=== PATIENT | female | born 1995 | race Caucasian/White ===

== ENCOUNTER 2018-07-21 17:00 | Emergency (ER) | payer SELFPAY ==
--- OUTSIDE RECORDS SUMMARY | 2018-07-21 17:02 | XMS REPORT | Clinical Summary ---
:1995 Author Organization [facility] Address [address] [place] [address] Care Team Providers Name Role Phone Asked, No Pcp Primary Care Provider Unavailable Allergies No Known Allergies Current Medications Prescription Sig. Disp. Refills Start Date End Date Status ibuprofen Take 1 tablet 30 tablet 0 07/03/2017 08/02/2017 (ADVIL,MOTRIN) 600 MG (600 mg total) tablet by mouth every 6 (six) hours as needed for mild pain for up to 30 days. albuterol (PROAIR Inhale 2 puffs 1 Inhaler 0 07/03/2017 08/02/2017 HFA,PROVENTIL every 4 (four) HFA,VENTOLIN HFA) 90 hours as needed mcg/actuation inhaler for wheezing for up to 30 days. Active Problems Not on file Encounters Date Type Specialty Care Team Description 07/14/2018 Emergency Emergency Medicine after 07/20/2017 Social History Tobacco Use Types Packs/Day Years Used Date Current Every Day Smoker 0.5 Alcohol Use Drinks/Week oz/Week Comments No Sex Assigned at Date Recorded Not on file Last Filed Vital Signs Vital Sign Reading Time Taken Blood Pressure 145/89 07/14/2018 1:45 AM CDT Pulse 114 07/14/2018 1:45 AM CDT Temperature 36.3 C (97.4 F) 07/14/2018 1:45 AM CDT Respiratory Rate 23 07/14/2018 1:45 AM CDT Oxygen Saturation 98% 07/14/2018 1:45 AM CDT Inhaled Oxygen Concentration - - Weight 83.5 kg (184 lb) 07/14/2018 1:49 AM CDT Height 162.6 cm (5' 4") 07/14/2018 1:49 AM CDT Body Mass Index 31.58 07/14/2018 1:49 AM CDT Plan of Treatment Health Maintenance Due Date Last Done Comments CERVICAL CANCER SCREENING 2014 INFLUENZA VACCINE 06/11/2018 Procedures Procedure Name Priority Date/Time Associated Diagnosis Comments ECG 12-LEAD STAT 07/14/2018 1:57 AM Results for this CDT procedure are in the results section. after 07/20/2017 Results ECG 12 lead (07/14/2018 1:57 AM) Ventricular rate 95 [facility] Atrial rate 95 [facility] NV interval 152 [facility] QRSD interval 78 [facility] QT interval 342 [facility] QTC interval 429 [facility] P axis 1 49 [facility] QRS axis 1 39 [facility] T wave axis 25 [facility] EKG impression Normal sinus rhythm-Nonspecific T wave [facility] abnormality-Abnormal ECG-No previous ECGs available- Performing Organization Address City/State/Zipcode Phone Number [facility] [place] [address] [place] [address] after 07/20/2017
--- NOTE | 2018-07-21 17:39 | ER ---
Nurse's Notes [facility] Name: Melissa Blevins Age: 23 yrs Sex: Female : 1995 Arrival Date: 07/21/2018 Time: 17:04 Bed 24 Private MD: Diagnosis: Dental caries Presentation: 07/21 17:16 Presenting complaint: Patient states: toothache that began yesterday. Transition of aa5 care: patient was not received from another setting of care. Onset of symptoms was July 20, 2018. Risk Assessment: Do you want to hurt yourself or someone else? Patient reports no desire to harm self or others. Initial Sepsis Screen: Does the patient meet any 2 criteria? No. Patient's initial sepsis screen is negative. Does the patient have a suspected source of infection? No. Patient's initial sepsis screen is negative. Care prior to arrival: None. 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 - Social history:: Smoking status: Patient uses tobacco products, smokes one-half pack cigarettes per day. - Ebola Screening: : No symptoms or risks identified at this time. - Family history:: not pertinent. - Hospitalizations: : No recent hospitalization is reported. Screenin:06 Abuse screen: Denies threats or abuse. Denies injuries from another. Nutritional aj screening: No deficits noted. Tuberculosis screening: No symptoms or risk factors identified. Fall Risk None identified. Assessment: 17:27 General: Appears in no apparent distress. uncomfortable, Behavior is calm, cooperative, aj appropriate for age. Pain: Complains of pain in lower right first molar. Neuro: Level of Consciousness is awake, alert, obeys commands, Oriented to person, place, time, situation, Appropriate for age. Respiratory: Airway is patent Respiratory effort is even, unlabored, Respiratory pattern is regular, symmetrical. EENT: Poor dentition noted. Dental caries noted in lower right first molar (#30) Reports pain in lower right first molar. Derm: Skin is intact, is healthy with good turgor, Skin is pink, warm \T\ dry. normal. 18:06 Reassessment: Patient appears in no apparent distress at this time. No changes from aj previously documented assessment. Patient and/or family updated on plan of care and expected duration. Pain level reassessed. Patient is alert, oriented x 3, equal unlabored respirations, skin warm/dry/pink. Patient states feeling better. Patient states symptoms have improved. Vital Signs: 17:19 BP 144 / 82; Pulse 98; Resp 18 S; Temp 98.0(TE); Pulse Ox 99% on R/A; Weight 86.18 kg aa5 (R); Height 5 ft. 5 in. (165.10 cm) (R); Pain 10/10; 17:19 Body Mass Index 31.62 (86.18 kg, 165.10 cm) aa5 ED Course: 17:04 Patient arrived in ED. rg4 17:16 Triage completed. aa5 17:16 Arm band placed on. aa5 17:21 Bertha Basilio RN is Primary Nurse. aj 17:21 César Shin MD is Attending Physician. rn 18:06 Patient has correct armband on for positive identification. aj 18:06 No provider procedures requiring assistance completed. Patient did not have IV access aj during this emergency room visit. Administered Medications: 17:45 Drug: TORadol 60 mg Route: IM; Site: right gluteus; aj 18:07 Follow up: Response: No adverse reaction; Pain is decreased aj Outcome: 17:38 Discharge ordered by . rn 18:06 Discharged to home ambulatory, with family. aj 18:06 Condition: good 18:06 Discharge instructions given to patient, family, Instructed on discharge instructions, follow up and referral plans. medication usage, Demonstrated understanding of instructions, follow-up care, medications, Prescriptions given X 3. 18:07 Patient left the ED. aj Signatures: Bertha Basilio, RN César Huang MD MD rn Calderon, Audri, RN RN Amy Ames rg4
--- NOTE | 2018-07-21 17:39 | EDPHYS ---
Physician Documentation [facility] Name: Melissa Blevins Age: 23 yrs Sex: Female : 1995 Arrival Date: 07/21/2018 Time: 17:04 Bed 24 Private MD: ED Physician César Shin HPI: 07/21 17:33 This 23 yrs old Female presents to ER via Ambulatory with complaints of MOUTH rn PAIN. 17:33 The patient presents with pain. The problem is located in the lower right first molar. rn 17:33 Onset: The symptoms/episode began/occurred yesterday. Duration: The symptoms are rn continuous. Severity of symptoms: At their worst the symptoms were moderate, in the emergency department the symptoms are unchanged. The patient has experienced similar episodes in the past. Reports several episodes of dental pain in past, has never hurt this bad or lasted this long so hasn't seen a dentist, has been using orajel with only minimal relief, no fever, no swelling, no drainage.. 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 - Social history:: Smoking status: Patient uses tobacco products, smokes one-half pack cigarettes per day. - Ebola Screening: : No symptoms or risks identified at this time. - Family history:: not pertinent. - Hospitalizations: : No recent hospitalization is reported. ROS: 17:33 Constitutional: Negative for fever, chills, and weight loss, Eyes: Negative for injury, rn pain, redness, and discharge, ENT: + dental pain and aches Exam: 17:33 Constitutional: This is a well developed, well nourished patient who is awake, alert, rn appears uncomfortable Head/Face: Normocephalic, atraumatic. ENT: Poor dentition, + deep cavity of tooth #30 without evidence of abscess/drainage/swelling Vital Signs: 17:19 BP 144 / 82; Pulse 98; Resp 18 S; Temp 98.0(TE); Pulse Ox 99% on R/A; Weight 86.18 kg aa5 (R); Height 5 ft. 5 in. (165.10 cm) (R); Pain 10; 17:19 Body Mass Index 31.62 (86.18 kg, 165.10 cm) aa5 MDM: 17:21 Patient medically screened. rn 17:33 Differential diagnosis: dental caries. Data reviewed: vital signs, nurses notes. rn 17:37 Counseling: I had a detailed discussion with the patient and/or guardian regarding: the rn historical points, exam findings, and any diagnostic results supporting the discharge/admit diagnosis, the need for outpatient follow up, to return to the emergency department if symptoms worsen or persist or if there are any questions or concerns that arise at home. Special discussion: I discussed with the patient/guardian in detail that at this point there is no indication for admission to the hospital. It is understood, however, that if the symptoms persist or worsen the patient needs to return immediately for re-evaluation. Based on the history and exam findings, there is no indication for further emergent testing or inpatient evaluation. I discussed with the patient/guardian the need to see a dentist for further evaluation of the symptoms. Administered Medications: 17:45 Drug: TORadol 60 mg Route: IM; Site: right gluteus; aj 18:07 Follow up: Response: No adverse reaction; Pain is decreased aj Disposition: 07/21/18 17:38 Discharged to Home. Impression: Dental caries. - Condition is Stable. - Discharge Instructions: Dental Caries, Adult. - Prescriptions for Clindamycin HCl 300 mg Oral Capsule - take 1 capsule by ORAL route every 6 hours for 10 days; 40 capsule. Ibuprofen 800 mg Oral Tablet - take 1 tablet by ORAL route every 12 hours As needed take with food; 20 tablet. Ultram 50 mg Oral Tablet - take 1 tablet by ORAL route every 6 hours As needed; 10 tablet. - Medication Reconciliation Form, Thank You Letter, Antibiotic Education, Prescription Opioid Use form. - Follow up: Private Physician; When: As needed; Reason: Recheck today's complaints, Re-evaluation by your physician. - Problem is chronic. - Symptoms have improved. Signatures: Bertha Basilio RN César Huang MD MD rn Calderon, Audri, RN RN aa5 Corrections: (The following items were deleted from the chart) 18:07 17:38 07/21/2018 17:38 Discharged to Home. Impression: Dental caries. Condition is aj Stable. Forms are Medication Reconciliation Form, Thank You Letter, Antibiotic Education, Prescription Opioid Use. Follow up: Private Physician; When: As needed; Reason: Recheck today's complaints, Re-evaluation by your physician. Problem is chronic. Symptoms have improved. rn
[2018-07-21] MEDS ORDERED: KETOROLAC 30 MG/ML INJ ONE (17:51)
== END 2018-07-21 18:07 | disposition home or self-care (01) ==
LOC: ER 17:00
DX: K02.9 Dental caries, unspecified (principal); F17.210 Nicotine dependence, cigarettes, uncomplicated
CPT/HCPCS: 96372; 99283

== ENCOUNTER 2018-08-18 18:31 | Emergency (ER) | payer SELFPAY ==
--- OUTSIDE RECORDS SUMMARY | 2018-08-18 18:33 | XMS REPORT | Clinical Summary ---
:1995 Author Organization [facility] Address [address] [place] [address] Care Team Providers Name Role Phone Asked, No Pcp Primary Care Provider Unavailable Allergies No Known Allergies Current Medications Not on file Active Problems Not on file Encounters Date Type Specialty Care Team Description 07/14/2018 Emergency Emergency Medicine after 08/17/2017 Social History Tobacco Use Types Packs/Day Years [...] procedure are in the results section. after 08/17/2017 Results ECG 12 lead (07/14/2018 1:57 AM) Ventricular rate 95 [facility] Atrial rate 95 [facility] ID interval 152 [facility] QRSD interval 78 [facility] QT interval 342 [facility] QTC interval 429 [facility] P axis 1 49 [facility] QRS axis 1 39 [facility] T wave axis 25 [facility] EKG impression Normal sinus rhythm-Nonspecific T wave [facility] M[facility] abnormality-Abnormal ECG-No previous ECGs available- Performing Organization Address City/State/Zipcode Phone Number [facility] MUSE [address] [place] [address] after 08/17/2017
--- NOTE | 2018-08-18 19:49 | ER ---
Nurse's Notes [facility] Name: Melissa Blevins Age: 23 yrs Sex: Female : 1995 Arrival Date: 08/18/2018 Time: 18:34 Bed 14 Private MD: Diagnosis: Unspecified diseases of pulp and periapical tissues;Bronchitis, not specified as acute or chronic Presentation: 08/18 18:50 Presenting complaint: Patient states: "my left bottom gum is swollen and it's been like aa5 that since yesterday". Transition of care: patient was not received from another setting of care. Onset of symptoms was August 2018. Risk Assessment: Do you want to hurt yourself or someone else? Patient reports no desire to harm self or others. Initial Sepsis Screen: Does the patient meet any 2 criteria? No. Patient's initial sepsis screen is negative. Does the patient have a suspected source of infection? No. Patient's initial sepsis screen is negative. Care prior to arrival: None. 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 - Social history:: Smoking status: Patient uses tobacco products, smokes one-half pack cigarettes per day. - Ebola Screening: : No symptoms or risks identified at this time. Screenin:13 Abuse screen: Denies threats or abuse. Denies injuries from another. Nutritional ao screening: No deficits noted. Tuberculosis screening: No symptoms or risk factors identified. Fall Risk None identified. Assessment: 19:07 General: Appears in no apparent distress. comfortable, Behavior is calm, cooperative, ao appropriate for age. Pain: Complains of pain in mouth. Neuro: Level of Consciousness is awake, alert, obeys commands, Oriented to person, place, time, situation, Appropriate for age Moves all extremities. Full function Speech is normal. Cardiovascular: Capillary refill < 3 seconds Patient's skin is warm and dry. Respiratory: Airway is patent Respiratory effort is even, unlabored, Respiratory pattern is regular, symmetrical. GI: Abdomen is non-distended. : No signs and/or symptoms were reported regarding the genitourinary system. EENT: Poor dentition noted. Derm: Skin is intact, Skin is normal, Skin temperature is warm. Musculoskeletal: Circulation, motion, and sensation intact. Range of motion: intact in all extremities. 20:17 Reassessment: DC instructions given to patient. Patient agree with the POC and to ao follow up with PCP. No questions at this time. Vital Signs: 18:49 BP 151 / 96; Pulse 86; Resp 16 S; Temp 98.7(TE); Pulse Ox 99% on R/A; Weight 86.18 kg aa5 (R); Height 5 ft. 5 in. (165.10 cm) (R); Pain 10/10; 18:49 Body Mass Index 31.62 (86.18 kg, 165.10 cm) aa5 ED Course: 18:34 Patient arrived in ED. mr 18:49 Arm band placed on. aa5 18:51 Triage completed. aa5 18:55 Bairon Appiah MD is Attending Physician. snw 18:55 Denise Cuellar FNP-C is PHCP. snw 19:07 Darrell Hewitt, ROSA is Primary Nurse. ao 19:14 Patient has correct armband on for positive identification. Pulse ox on. NIBP on. ao 20:16 No provider procedures requiring assistance completed. Patient did not have IV access ao during this emergency room visit. Administered Medications: 20:00 Drug: [place] 5 mg-325 mg 1 tabs Route: PO; ao 20:16 Follow up: Response: No adverse reaction ao 20:00 Drug: predniSONE 40 mg Route: PO; ao 20:15 Follow up: Response: No adverse reaction ao 20:15 Drug: Rocephin (cefTRIAXone) 1 grams Route: IM; Site: right gluteus; ao 20:22 Follow up: Response: No adverse reaction ao 20:15 Drug: Albuterol 2.5 mg Route: Inhalation; ao 20:15 Follow up: Response: No adverse reaction ao Outcome: 19:49 Discharge ordered by . snw 20:16 Discharged to home ambulatory. ao 20:16 Condition: stable 20:16 Discharge instructions given to patient, Instructed on discharge instructions, follow up and referral plans. Demonstrated understanding of instructions, follow-up care, medications, Prescriptions given X 3. 20:22 Patient left the ED. ao Signatures: Denise Cuellar, RAMANDEEP-C STEEL PLACER-Csnw Chaparrita Garcia mr GandaraJennifer, RN RN aa5 Darrell Hewitt RN RN ao
--- NOTE | 2018-08-18 19:49 | EDPHYS ---
Physician Documentation [facility] Name: Melissa Blevins Age: 23 yrs Sex: Female : 1995 Arrival Date: 08/18/2018 Time: 18:34 Bed 14 Private MD: ED Physician Bairon Appiah HPI: 08/18 19:35 This 23 yrs old Female presents to ER via Ambulatory with complaints of snw abscess tooth. 19:35 The patient presents with pain, swelling. The problem is located in the right jaw. snw Onset: The symptoms/episode began/occurred suddenly, 1 day(s) ago, and became persistent. Duration: The symptoms are continuous. Modifying factors: The symptoms are alleviated by nothing. Associated signs and symptoms: Pertinent positives: dental pain to area x 2-3 days. Severity of symptoms: At their worst the symptoms were moderate. The patient has not experienced similar symptoms in the past. It is unknown whether or not the patient has recently seen a physician. encouraged to see dentist kalpesh. 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 - Social history:: Smoking status: Patient uses tobacco products, smokes one-half pack cigarettes per day. - Ebola Screening: : No symptoms or risks identified at this time. ROS: 19:33 Constitutional: Negative for fever, chills, and weight loss, Eyes: Negative for injury, snw pain, redness, and discharge, ENT: Negative for injury and discharge, + edema, tenderness to right lower mandible adjacent to right lower bicuspids Neck: Negative for injury, pain, and swelling, Cardiovascular: Negative for chest pain, palpitations, and edema, Abdomen/GI: Negative for abdominal pain, nausea, vomiting, diarrhea, and constipation, Back: Negative for injury and pain, : Negative for injury, bleeding, discharge, and swelling, MS/Extremity: Negative for injury and deformity, Skin: Negative for injury, rash, and discoloration, Neuro: Negative for headache, weakness, numbness, tingling, and seizure. 19:33 Respiratory: Positive for cough. Exam: 19:31 Constitutional: This is a well developed, well nourished patient who is awake, alert, snw and in no acute distress. Eyes: Pupils equal round and reactive to light, extra-ocular motions intact. Lids and lashes normal. Conjunctiva and sclera are non-icteric and not injected. Cornea within normal limits. Periorbital areas with no swelling, redness, or edema. Neck: Trachea midline, no thyromegaly or masses palpated, and no cervical lymphadenopathy. Supple, full range of motion without nuchal rigidity, or vertebral point tenderness. No Meningismus. Chest/axilla: Normal chest wall appearance and motion. Nontender with no deformity. No lesions are appreciated. Cardiovascular: Regular rate and rhythm with a normal S1 and S2. No gallops, murmurs, or rubs. Normal PMI, no JVD. No pulse deficits. Respiratory: Lungs have equal breath sounds bilaterally, wheezes to auscultation. No rales or rhonchi noted. No increased work of breathing, no retractions or nasal flaring. Abdomen/GI: Soft, non-tender, with normal bowel sounds. No distension or tympany. No guarding or rebound. No evidence of tenderness throughout. Back: No spinal tenderness. No costovertebral tenderness. Full range of motion. Skin: Warm, dry with normal turgor. Normal color with no rashes, no lesions, and no evidence of cellulitis. MS/ Extremity: Pulses equal, no cyanosis. Neurovascular intact. Full, normal range of motion. Neuro: Awake and alert, GCS 15, oriented to person, place, time, and situation. Cranial nerves II-XII grossly intact. Motor strength 5/5 in all extremities. Sensory grossly intact. Cerebellar exam normal. Normal gait. 19:31 Head/face: Noted is swelling, that is moderate, of the right jaw. 19:31 ENT: External ear(s): are unremarkable, TM's: are normal, Nose: is normal, Mouth: is normal, Dental exam: gum swelling, specifically in the lower right cuspid (#27), lower right first bicuspid (#28) and lower right second bicuspid (#29), pain. Vital Signs: 18:49 BP 151 / 96; Pulse 86; Resp 16 S; Temp 98.7(TE); Pulse Ox 99% on R/A; Weight 86.18 kg aa5 (R); Height 5 ft. 5 in. (165.10 cm) (R); Pain 10; 18:49 Body Mass Index 31.62 (86.18 kg, 165.10 cm) aa5 MDM: 18:55 Patient medically screened. snw 19:49 Data reviewed: vital signs, nurses notes. Data interpreted: Pulse oximetry: on room air snw is 99 %. Interpretation: normal. Counseling: I had a detailed discussion with the patient and/or guardian regarding: the historical points, exam findings, and any diagnostic results supporting the discharge/admit diagnosis, the presence of at least one elevated blood pressure reading (>120/80) during this emergency department visit, the need for outpatient follow up, to return to the emergency department if symptoms worsen or persist or if there are any questions or concerns that arise at home. Special discussion: I have referred the patient to see his PCP for further evaluation of high blood pressure. Based on the history and exam findings, there is no indication for further emergent testing or inpatient evaluation. I discussed with the patient/guardian the need to see a dentist for further evaluation of the symptoms. I discussed with the patient/guardian the need to see the primary care provider for further evaluation of the symptoms. Administered Medications: 20:00 Drug: [place] 5 mg-325 mg 1 tabs Route: PO; ao 20:16 Follow up: Response: No adverse reaction ao 20:00 Drug: predniSONE 40 mg Route: PO; ao 20:15 Follow up: Response: No adverse reaction ao 20:15 Drug: Rocephin (cefTRIAXone) 1 grams Route: IM; Site: right gluteus; ao 20:22 Follow up: Response: No adverse reaction ao 20:15 Drug: Albuterol 2.5 mg Route: Inhalation; ao 20:15 Follow up: Response: No adverse reaction ao Disposition: 08/19 07:43 Co-signature as Attending Physician, Bairon Appiah MD I agree with the assessment and hina plan of care. Disposition: 08/18/18 19:49 Discharged to Home. Impression: Unspecified diseases of pulp and periapical tissues, Bronchitis, not specified as acute or chronic. - Condition is Stable. - Discharge Instructions: Acute Bronchitis, Adult, Dental Abscess, Dental Pain, Hypertension, How to Use an Inhaler, Upper Respiratory Infection, Adult, Cool Mist Vaporizer, Diet and Dental Disease, Cough, Adult. - Prescriptions for chlorhexidine gluconate 0.12 % Mucous Membrane mouthwash - place 15 milliliter by MUCOUS MEMBRANE route 2 times per day after brushing teeth, swish in mouth for 30 seconds then spit out; 480 milliliter. penicillin V potassium 500 mg Oral tablet - take 1 tablet by ORAL route every 8 hours for 10 days; 30 tablet. Motrin IB 200 mg Oral Tablet - take 2 tablet by ORAL route every 8 hours As needed as needed with food; 40 tablet. Albuterol Sulfate 90 mcg/actuation - inhale 1-2 puff by INHALATION route every 4-6 hours; 1 Inhaler. - Work release form, Medication Reconciliation Form, Thank You Letter, Antibiotic Education, Prescription Opioid Use form. - Follow up: Private Physician; When: 2 - 3 days; Reason: Recheck today's complaints, Continuance of care, Re-evaluation by your physician. Follow up: Emergency Department; When: As needed; Reason: Worsening of condition. - Problem is new. - Symptoms are unchanged. Signatures: Bairon Appiah MD MD cha Therrien, Shelly, PHARMACOLOGIST-C PHARMACOLOGIST-Csnw Jennifer Gandara RN RN aa5 Darrell Hewitt RN RN ao Corrections: (The following items were deleted from the chart) 08/18 20:22 19:49 08/18/2018 19:49 Discharged to Home. Impression: Unspecified diseases of pulp and ao periapical tissues; Bronchitis, not specified as acute or chronic. Condition is Stable. Discharge Instructions: Acute Bronchitis, Adult, Dental Abscess, Dental Pain, Hypertension, How to Use an Inhaler, Upper Respiratory Infection, Adult, Cool Mist Vaporizer, Diet and Dental Disease, Cough, Adult. Prescriptions for chlorhexidine gluconate 0.12 % Mucous Membrane mouthwash - place 15 milliliter by MUCOUS MEMBRANE route 2 times per day after brushing teeth, swish in mouth for 30 seconds then spit out; 480 milliliter, penicillin V potassium 500 mg Oral tablet - take 1 tablet by ORAL route every 8 hours for 10 days; 30 tablet, Motrin IB 200 mg Oral Tablet - take 2 tablet by ORAL route every 8 hours As needed as needed with food; 40 tablet, Albuterol Sulfate 90 mcg/actuation - inhale 1-2 puff by INHALATION route every 4-6 hours; 1 Inhaler. and Forms are Work release form, Medication Reconciliation Form, Thank You Letter, Antibiotic Education, Prescription Opioid Use. Follow up: Private Physician; When: 2 - 3 days; Reason: Recheck today's complaints, Continuance of care, Re-evaluation by your physician. Follow up: Emergency Department; When: As needed; Reason: Worsening of condition. Problem is new. Symptoms are unchanged. snw
[2018-08-18] MEDS ORDERED: HYDROCODONE/APAP 5/325 MG TAB ONE (19:50)
[2018-08-18] MEDS ORDERED: ALBUTEROL 2.5 MG/3 ML NEB SOL ONE (19:50)
[2018-08-18] MEDS ORDERED: CEFTRIAXONE 1000 MG/VIAL ONE (19:50)
[2018-08-18] MEDS ORDERED: predniSONE 20 MG TAB ONE (19:50)
== END 2018-08-18 20:22 | disposition home or self-care (01) ==
LOC: ER 18:31
DX: K04.90 Unspecified diseases of pulp and periapical tissues (principal); J40 Bronchitis, not specified as acute or chronic; F17.210 Nicotine dependence, cigarettes, uncomplicated; I34.1 Nonrheumatic mitral (valve) prolapse
CPT/HCPCS: 96372; 99284; J7512

== ENCOUNTER 2018-10-09 09:03 | Emergency (ER) | payer SELFPAY ==
--- OUTSIDE RECORDS SUMMARY | 2018-10-09 09:06 | XMS REPORT | Clinical Summary ---
:1995 Author Organization [facility] Address [address] [place] [address] Care Team Providers Name Role Phone Asked, No Pcp Primary Care Provider Unavailable Allergies No Known Allergies Medications Not on file Active Problems Not on file Encounters Date Type Specialty Care Team Description 07/14/2018 Emergency Emergency Medicine after 10/08/2017 Social History Tobacco Use Types Packs/Day Years Used Date Current Every Day Smoker 0.5 Alcohol Use Drinks/Week oz/Week Comments No Sex Assigned at Date Recorded Not on file Job Start Date Occupation Industry Not on file Not on file Not on file Travel History Travel Start Travel End No recent travel history available. Last Filed Vital Signs Vital Sign Reading [...] Health Maintenance Due Date Last Done Comments MMR VACCINES (1 of 1 - Standard 1994 series) VARICELLA VACCINES (1 of 2 - 2-dose 2006 adolescent series) CERVICAL CANCER SCREENING 2014 INFLUENZA VACCINE 06/11/2018 HEPATITIS B VACCINES Aged Out No longer eligible based on patient's age to complete this topic IPV VACCINES Aged Out No longer eligible based on patient's age to complete this topic MENINGOCOCCAL VACCINE Aged Out No longer eligible based on patient's age to complete this topic Procedures Procedure Name Priority Date/Time Associated Diagnosis Comments ECG 12-LEAD STAT 07/14/2018 1:57 AM Results for this CDT procedure are in the results section. after 10/08/2017 Results ECG 12 lead (07/14/2018 1:57 AM CDT) Ventricular rate 95 [facility] Atrial rate 95 [facility] FL interval 152 [facility] QRSD interval 78 [facility] QT interval 342 [facility] QTC interval 429 [facility] P axis 1 49 [facility] QRS axis 1 39 [facility] T wave axis 25 [facility] EKG impression Normal sinus rhythm-Nonspecific T wave [facility] MUSE abnormality-Abnormal ECG-No previous ECGs available- Performing Organization Address City/State/Zipcode Phone Number [facility] [address] [place] [address] after 10/08/2017 Advance Directives Patient has advance care planning documents on file. For more information, please contact:Yuriy Paniagua[address] [place] [address]
[2018-10-09 09:37] LABS: Urine Blood 3+ (NEG); Urine Glucose NEGATIVE (NEG); Urine Protein 1+ (NEG)
[2018-10-09] MEDS ORDERED: ONDANSETRON 4 MG/2 ML VIAL ONE (10:00)
[2018-10-09 10:02] LABS: Absolute Lymphocytes (CBC) 1.6 K/uL (0.7-4.9); Absolute Monocytes 0.4 K/uL (0.1-1.3); Absolute Neutrophil 5.2 K/uL (1.8-8.0); Basophils % 0.8 % (0-1.3); Eosinophils % 3.4 % (0-4.4); Hematocrit 37.4 % (36.0-45.0); MCH 30.2 pg (27.0-35.0); MCV 87.4 fL (80-100); MPV 6.8 fL (7.6-11.3); Monocytes % 5.8 % (3.3-12.3); RBC Red Blood Cell Count 4.28 M/uL (3.86-4.86)
[2018-10-09 10:14] LABS: BUN Blood Urea Nitrogen 10 mg/dL (7-18); Bicarbonate 27 mmol/L (21-32); Glucose Level 82 mg/dL (74-106); Potassium 3.7 mmol/L (3.5-5.1); Sodium Level 140 mmol/L (136-145)
[2018-10-09] MEDS ORDERED: MAGNE/ALUM HYDROXD 30 ML UCUP ONE (10:40)
[2018-10-09] MEDS ORDERED: LIDOCAINE VISCOUS 2% SOLN 15 ML UDC ONE (10:40)
[2018-10-09 10:57] LABS: ALT/SGPT 25 U/L (12-78); AST/SGOT 16 U/L (15-37); Albumin 3.9 g/dL (3.4-5.0); Alkaline Phosphatase 70 U/L (45-117); Bilirubin Direct < 0.1 mg/dL (0-0.2); Bilirubin Total 0.1 mg/dL (0.2-1.0); Lipase 136 U/L (73-393); Protein, Total 7.7 g/dL (6.4-8.2)
--- NOTE | 2018-10-09 11:40 | RAD REPORT ---
EXAM DESCRIPTION: US - Abdomen Exam Limited - 10/09/2018 11:04 am CLINICAL HISTORY: Abdominal pain. COMPARISON: None. FINDINGS: 16 millimeter gallstone. The gallbladder wall is not thickened. The biliary tree is normal caliber. IMPRESSION: Cholelithiasis without cholecystitis.
--- NOTE | 2018-10-09 12:00 | RAD REPORT ---
EXAM DESCRIPTION: US - Transvaginal Study Probe - 10/09/2018 11:18 am CLINICAL HISTORY: Lower abdominal pain, pelvic pain COMPARISON: None. TECHNIQUE: Endovaginal sonography was performed. FINDINGS: Uterus is 6.0 x 3.9 x 4.1 cm. No myometrial mass identifiable. A thin endometrial stripe i s present with no endometrial mass or polyp. Endometrial thickness is 3 mm. Physiologic quantity of free fluid is seen in the cul-de-sac. Both ovaries are identifiable and chrissy l in size. No suspicious ovarian or adnexal finding. IMPRESSION: Endovaginal ultrasound study shows no significant or suspicious finding.
--- NOTE | 2018-10-09 12:35 | ER ---
Nurse's Notes [facility] Name: Melissa Blevins Age: 23 yrs Sex: Female : 1995 Arrival Date: 10/09/2018 Time: 09:06 Bed 16 Private MD: Diagnosis: Cholelithiasis;Nausea and vomiting Presentation: 10/09 09:14 Presenting complaint: Patient states: i started having n/v this morning with abdominal tw2 pain, i am currently on my period. Transition of care: patient was not received from another setting of care. Onset of symptoms was October 09, 2018. Risk Assessment: Do you want to hurt yourself or someone else? Patient reports no desire to harm self or others. Initial Sepsis Screen: Does the patient meet any 2 criteria? No. Patient's initial sepsis screen is negative. Does the patient have a suspected source of infection? No. Patient's initial sepsis screen is negative. Care prior to arrival: None. 09:14 Method Of Arrival: Ambulatory tw2 09:14 Acuity: CRISTHIAN 3 tw2 Triage Assessment: 09:19 General: Appears in no apparent distress. Behavior is calm, cooperative. Pain: tw2 Complains of pain in abdomen. GI: Reports lower abdominal pain, upper abdominal pain, nausea, vomiting. 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 - Social history:: Smoking status: Patient uses tobacco products, smokes one pack cigarettes per day. Patient uses alcohol, occasionally. - Ebola Screening: : Patient denies travel to an Ebola-affected area in the 21 days before illness onset. Screenin:20 Abuse screen: Denies threats or abuse. Nutritional screening: No deficits noted. tw2 Tuberculosis screening: No symptoms or risk factors identified. Fall Risk None identified. Assessment: 09:26 General: Appears in no apparent distress. obese, well groomed, Behavior is calm, tw2 cooperative, appropriate for age. Pain: Complains of pain in abdomen. Neuro: Level of Consciousness is awake, alert, obeys commands, Oriented to person, place, time, situation. Cardiovascular: Heart tones S1 S2 Patient's skin is warm and dry. Respiratory: Airway is patent Respiratory effort is even, unlabored, Respiratory pattern is regular, symmetrical, Breath sounds are clear bilaterally. GI: Abdomen is round non-distended, Bowel sounds present X 4 quads. Reports lower abdominal pain, upper abdominal pain, nausea, vomiting. : No signs and/or symptoms were reported regarding the genitourinary system. EENT: No signs and/or symptoms were reported regarding the EENT system. Derm: No signs and/or symptoms reported regarding the dermatologic system. Musculoskeletal: Circulation, motion, and sensation intact. Range of motion: intact in all extremities. 10:23 Reassessment: Patient appears in no apparent distress at this time. Patient and/or tw2 family updated on plan of care and expected duration. Pain level reassessed. Patient is alert, oriented x 3, equal unlabored respirations, skin warm/dry/pink. 11:31 Reassessment: Patient appears in no apparent distress at this time. Patient and/or tw2 family updated on plan of care and expected duration. Pain level reassessed. Patient is alert, oriented x 3, equal unlabored respirations, skin warm/dry/pink. 12:23 Reassessment: Patient appears in no apparent distress at this time. Patient and/or tw2 family updated on plan of care and expected duration. Pain level reassessed. Patient is alert, oriented x 3, equal unlabored respirations, skin warm/dry/pink. pt tolerated po challenge at this time, nad. 12:44 Reassessment: Patient appears in no apparent distress at this time. Patient and/or tw2 family updated on plan of care and expected duration. Pain level reassessed. Patient is alert/active/playful, equal unlabored respirations, skin warm/dry/pink. Patient states feeling better. Patient states symptoms have improved. Vital Signs: 09:15 BP 134 / 94; Pulse 94; Resp 17; Temp 98.5(O); Pulse Ox 100% on R/A; Pain 6/10; tw2 10:23 BP 105 / 80; Pulse 75; Resp 17; Pulse Ox 100% on R/A; Pain 6/10; tw2 11:31 BP 115 / 88; Pulse 77; Resp 17; Pulse Ox 99% on R/A; tw2 12:24 BP 123 / 65; Pulse 82; Resp 17; Pulse Ox 100% ; Pain 4/10; tw2 ED Course: 09:06 Patient arrived in ED. rg4 09:13 Anay Fuchs RN is Primary Nurse. tw2 09:15 Triage completed. tw2 09:16 Arm band placed on. tw2 09:16 Bed in low position. Call light in reach. Adult w/ patient. Pulse ox on. NIBP on. tw2 09:[address] PA is PHCP. cp 09:38 Drew Kwon MD is Attending Physician. cp 09:40 Missed attempt(s): 22 gauge in left antecubital area. Bleeding controlled, band aid tw2 applied, catheter tip intact. Inserted saline lock: 22 gauge in right antecubital area, using aseptic technique. Blood collected. 11:04 US Abdomen Limited: RUQ/epigastric In Process Unspecified. EDMS 11:20 Transvaginal Study Probe In Process Unspecified. EDMS 11:21 Patient moved back from ultrasound. hr 12:33 Reza Waters MD is Referral Physician. cp 12:44 No provider procedures requiring assistance completed. IV discontinued, intact, tw2 bleeding controlled, No redness/swelling at site. Pressure dressing applied. Administered Medications: 09:55 Drug: Zofran 4 mg Route: IVP; Site: right antecubital; tw2 10:34 Follow up: Response: No adverse reaction; Nausea is decreased tw2 10:34 Drug: GI Cocktail without - (Maalox Suspension 30 ml, Lidocaine Liquid 2 % 15 tw2 ml) Route: PO; 12:22 Follow up: Response: No adverse reaction; Pain is decreased tw2 Outcome: 12:34 Discharge ordered by . cp 12:44 Discharged to home ambulatory, with friend. tw2 12:44 Condition: stable 12:44 Discharge instructions given to patient, friend, Instructed on discharge instructions, follow up and referral plans. no drinking with medication, no driving heavy equipment, medication usage, Demonstrated understanding of instructions, follow-up care, medications, Prescriptions given X 3. 12:45 Patient left the ED. tw2 Signatures: Dispatcher [employer] EDMS Pauline Webster hr Bairon Street PA PA cp Anay Fuchs RN RN tw2 Amy Browning rg4 Corrections: (The following items were deleted from the chart) 10:35 10:23 BP 115 / 98; Pulse 75bpm; Resp 17bpm; Pulse Ox 100% RA; Pain 04/20; tw2 tw2
--- NOTE | 2018-10-09 12:35 | EDPHYS ---
Physician Documentation [facility] Name: Melissa Blevins Age: 23 yrs Sex: Female : 1995 Arrival Date: 10/09/2018 Time: 09:06 Bed 16 Private MD: ED Physician Drew Kwon HPI: 10/09 09:35 This 23 yrs old Female presents to ER via Ambulatory with complaints of cp Nausea/Vomiting, Abdominal Pain. 09:35 The patient presents to the emergency department with nausea, that is moderate, cp vomiting, 2 times today. Onset: The symptoms/episode began/occurred this morning. Possible causes: unknown. Associated signs and symptoms: Pertinent positives: abdominal pain, vaginal bleeding, Pertinent negatives: constipation, diarrhea, fever, GI bleeding. Severity of symptoms: in the emergency department the symptoms are unchanged despite home interventions. 09:35 Patient reports she is currently on her regular menstrual cycle. 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 - Social history:: Smoking status: Patient uses tobacco products, smokes one pack cigarettes per day. Patient uses alcohol, occasionally. - Ebola Screening: : Patient denies travel to an Ebola-affected area in the 21 days before illness onset. ROS: 09:40 Constitutional: Negative for body aches, chills, fever, poor PO intake. cp 09:40 Eyes: Negative for injury, pain, redness, and discharge. cp 09:40 ENT: Negative for drainage from ear(s), ear pain, sore throat, difficulty swallowing, difficulty handling secretions. 09:40 Cardiovascular: Negative for chest pain, edema, palpitations. 09:40 Respiratory: Negative for cough, shortness of breath, wheezing. 09:40 Abdomen/GI: Positive for abdominal pain, nausea and vomiting, Negative for diarrhea, constipation, black/tarry stool, rectal bleeding. 09:40 Back: Negative for pain at rest, pain with movement. 09:40 : Positive for vaginal bleeding, Negative for urinary symptoms. 09:40 Skin: Negative for cellulitis, rash. 09:40 Neuro: Negative for altered mental status, headache, weakness. 09:40 All other systems are negative. Exam: 09:45 Constitutional: The patient appears in no acute distress, alert, awake, non-toxic, well cp developed, well nourished. 09:45 Head/Face: Normocephalic, atraumatic. Eyes: Pupils equal round and reactive to light, cp extra-ocular motions intact. Lids and lashes normal. Conjunctiva and sclera are non-icteric and not injected. Cornea within normal limits. Periorbital areas with no swelling, redness, or edema. ENT: Nares patent. No nasal discharge, no septal abnormalities noted. Tympanic membranes are normal and external auditory canals are clear. Oropharynx with no redness, swelling, or masses, exudates, or evidence of obstruction, uvula midline. Mucous membranes moist. Chest/axilla: Normal chest wall appearance and motion. Nontender with no deformity. No lesions are appreciated. 09:45 Cardiovascular: Rate: normal, Rhythm: regular, Heart sounds: murmur, not appreciated, rub, not appreciated, gallop, not appreciated, Edema: is not appreciated. 09:45 Respiratory: the patient does not display signs of respiratory distress, Respirations: normal, no use of accessory muscles, no retractions, no splinting, no tachypnea, labored breathing, is not present, Breath sounds: are clear throughout, no decreased breath sounds, no stridor, no wheezing. 09:45 Abdomen/GI: Inspection: abdomen appears normal, Bowel sounds: active, all quadrants, Palpation: soft, in all quadrants, mild abdominal tenderness, in the right lower quadrant and left lower quadrant, moderate abdominal tenderness, in the epigastric area and right upper quadrant, rebound tenderness, is not appreciated, involuntary guarding, is not appreciated. 09:45 Back: pain, is absent, ROM is normal. 09:45 Skin: cellulitis, is not appreciated, no rash present. 09:45 Neuro: Orientation: to person, place \T\ time. Mentation: is normal, Cerebellar function: is grossly normal, Motor: is normal, Sensation: is normal. Vital Signs: 09:15 BP 134 / 94; Pulse 94; Resp 17; Temp 98.5(O); Pulse Ox 100% on R/A; Pain 6/10; tw2 10:23 BP 105 / 80; Pulse 75; Resp 17; Pulse Ox 100% on R/A; Pain 6/10; tw2 11:31 BP 115 / 88; Pulse 77; Resp 17; Pulse Ox 99% on R/A; tw2 12:24 BP 123 / 65; Pulse 82; Resp 17; Pulse Ox 100% ; Pain 4/10; tw2 MDM: 09:38 Patient medically screened. cp 10:00 Differential diagnosis: gastritis, cholecystitis, pancreatitis, viral gastroenteritis, cp gastroenteritis. 12:32 Data reviewed: vital signs, nurses notes, lab test result(s), radiologic studies, cp ultrasound. 10/09 09:30 Order name: Urine --Ancillary (enter results); Complete Time: 10:30 eb 10/09 09:30 Order name: Urine Dipstick--Ancillary (enter results); Complete Time: 10:30 eb 10/09 10:46 Interpretation: Normal except: UBLD 3+; UPROT 1+. 10/09 09:50 Order name: BMP; Complete Time: 10:30 cp 10/09 09:50 Order name: CBC with Diff; Complete Time: 10:30 cp 10/09 10:31 Interpretation: Normal except: MCV 87.4; PLT 560; RDW 17.1; MPV 6.8. 10/09 09:54 Order name: Lipase; Complete Time: 11:06 cp 10/09 09:54 Order name: LFT's; Complete Time: 11:06 cp 10/09 11:06 Interpretation: Normal except: BILIT 0.1; GLOB 3.8; A/G 1.0. 10/09 09:26 Order name: Urine Dipstick-Ancillary (obtain specimen); Complete Time: 09:26 tw2 10/09 09:50 Order name: IV Start; Complete Time: 09:50 tw2 10/09 10:48 Order name: US Abdomen Limited: RUQ/epigastric; Complete Time: 12:08 cp 10/09 11:05 Order name: Transvaginal Study Probe; Complete Time: 12:08 EDMS 10/09 12:08 Order name: PO challenge; Complete Time: 12:22 cp Administered Medications: 09:55 Drug: Zofran 4 mg Route: IVP; Site: right antecubital; tw2 10:34 Follow up: Response: No adverse reaction; Nausea is decreased tw2 10:34 Drug: GI Cocktail without - (Maalox Suspension 30 ml, Lidocaine Liquid 2 % 15 tw2 ml) Route: PO; 12:22 Follow up: Response: No adverse reaction; Pain is decreased tw2 Disposition: 18:51 Co-signature as Attending Physician, Drew Kwon MD I agree with the assessment and kdr plan of care. Disposition: 10/09/18 12:34 Discharged to Home. Impression: Cholelithiasis, Nausea and vomiting. - Condition is Stable. - Discharge Instructions: Nausea and Vomiting, Adult, Cholelithiasis. - Prescriptions for Bentyl 20 mg Oral Tablet - take 2 tablet by ORAL route every 6 hours As needed; 40 tablet. Pepcid 20 mg Oral Tablet - take 1 tablet by ORAL route every 12 hours for 10 days; 20 tablet. promethazine 25 mg Oral Tablet - take 1 tablet by ORAL route every 6 hours As needed; 20 tablet. - Medication Reconciliation Form, Thank You Letter, Antibiotic Education, Prescription Opioid Use, Work release form form. - Follow up: Reza Waters MD; When: 1 - 2 days; Reason: Recheck today's complaints. - Problem is new. - Symptoms have improved. Addendum: 10/12/2018 09:03 Co-signature as Attending Physician, Drew Kwon MD I agree with the assessment and k plan of care. Signatures: Dispatcher [employer] [facility] Drew Kwon MD MD [facility] [address] [place] cp Anay Fuchs, RN RN tw2 Corrections: (The following items were deleted from the chart) 10/09 11:05 10:49 Pelvis Complete+[email or web address] ordered. [facility] 12:45 12:34 10/09/2018 12:34 Discharged to Home. Impression: Cholelithiasis; Nausea and tw2 vomiting. Condition is Stable. Forms are Work release form, Medication Reconciliation Form, Thank You Letter, Antibiotic Education, Prescription Opioid Use. Follow up: Dr. Reza Waters; When: 1 - 2 days; Reason: Recheck today's complaints. Problem is new. Symptoms have improved. cp
== END 2018-10-09 12:45 | disposition home or self-care (01) ==
LOC: ER 09:03
DX: K80.20 Calculus of gallbladder without cholecystitis without obstruction (principal); F17.210 Nicotine dependence, cigarettes, uncomplicated
CPT/HCPCS: 36415; 76705; 76830; 80048; 80076; 81003; 81025; 83690; 85025; 96374; 99284; J2405